=== PATIENT | male | born 1980 | race Caucasian/White ===

== ENCOUNTER 2017-03-10 10:10 | Emergency (ER) | payer BC ==
[2017-03-10] MEDS ORDERED: ASPIRIN 81 MG TAB.CHEW PO ONE (10:18)
--- NOTE | 2017-03-10 10:29 | ERNOTE ---
Chest Pain/Cardiac HPI Date of Service: 03/10/17 Time Seen by Provider: 03/10/17 10:12 Source: patient Exam Limitations: no limitations Home Medications: HOME MEDICATIONS Albuterol Sulfate [Ventolin Hfa] 2 puff IH Q4H PRN #1 inhaler 03/10/17 [Last Taken Unknown] Narrative: Pt. comes in with c/o intermittent chest pain, and SOB that started yesterday and is accompanied by dizziness and lightheadedness. Pt. is a smoker and has a family history of his uncle, dad, and paternal grandparents dying of heart attacks. Pt. states that his uncle was a sudden at 40 years of age. Pt. denies any recent illness, nausea, vomiting, decreased apatite or increased hunger or thirst. Pt. denies any numbness, tingling, or weakness. Review of Systems - Review of Systems Constitutional: Present: weakness, fatigue, malaise. Absent: recent illness, fever, chills, weight loss, decreased activity level EYE: Present: no symptoms reported. Absent: eye pain, eye discharge, double vision, vision changes ENT: Present: no symptoms reported Respiratory: Present: shortness of breath. Absent: cough, orthopnea, wheezing Cardiology: Present: chest pain. Absent: palpitations, edema Gastrointestinal/Abdominal: Present: no symptoms reported Genitourinary: Present: no symptoms reported Musculoskeletal: Present: no symptoms reported. Absent: back pain, joint pain Skin: Present: no symptoms reported. Absent: rash, change in color, change in hair/nails Neurological: Present: dizziness/light-headedness, weakness. Absent: anxiety, headache, numbness, tingling All Other Systems: All systems neg except as marked - Patient's Past Medical History Patient History - Medical: No pertinent hx Patient History - Cardiac/Respiratory: Other - smoking Patient History - Cancer: No Hx of Cancer Patient History - Surgical Procedures: No surgical history Patient History - Other: None - Family History Grandmother-Paternal Family History - Cardiac/Respiratory: Coronary Heart Disease, Myocardial Infarction Grandfather-Paternal Family History - Cardiac/Respiratory: Coronary Heart Disease, Myocardial Infarction Father Family History - Cardiac/Respiratory: Coronary Heart Disease, Myocardial Infarction Physical Exam - Physical Exam General Appearance: Present: wd/wn, alert, no apparent distress Head Exam: Present: normal inspection, no evidence of injury Eye Exam: Normal inspection: bilateral, PERRL: bilateral, EOMI: bilateral Ears, Nose, Throat: Present: normal ENT inspection, normal pharynx Neck: Present: normal inspection, nontender. Absent: lymphadenopathy (R), lymphadenopathy (L) Respiratory: Present: no respiratory distress, normal breath sounds, no accessory muscle use, chest nontender, lungs clear Cardiovascular/Chest: Present: regular rate, rhythm, no murmur, normal peripheral pulses Gastrointestinal/Abdominal: Present: normal bowel sounds, nontender, nondistended, soft, no organomegaly. Absent: McBurney sign, Obturator sign, Rangel sign, Psoas sign Back Exam: Present: normal inspection, normal range of motion, no CVA tenderness , no vertebral tenderness. Absent: muscle spasm Extremity Exam: Present: normal inspection, non-tender, normal range of motion, no edema. 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 Absent: pallor, skin rash ED Progress - Date and Time Seen: Date and Time: 03/10/17 11:13 Feel that given pt. smoking history and xray results feel that pt. has chronic bronchitis and his SOB and intermittent chest wall pain are related and have ruled out cardiac etiology at this time. Feel that opt. likely needs outpatient stress test at some point but not emergently. - Results and Orders Patient's Lab Results:: I have reviewed the patient's lab results. - Vital Signs Patient's Vital Signs:: I have reviewed the patient's vital signs. - EKG EKG: NSR EKG read: Reviewed by me EKG Comments: interp by Dr Loco - X-Ray X-Ray #1 X-Ray: chest Interpretation: Reviewed by me X-ray Comments: central bronchial thickening no acute Departure - Departure Clinical Impression: Chronic bronchitis Qualifiers: Chronic bronchitis type: unspecified Qualified Code(s): J42 - Unspecified chronic bronchitis Disposition: Home self-care Condition: Good Instructions: Chronic Obstructive Pulmonary Disease, [id number] Additional Instructions: Please follow up with Dr Palomo in 2-3 days for further testing. Referrals: Carmen Palomo MD [Primary Care Provider] - Prescriptions: Albuterol Sulfate [Ventolin Hfa] 2 puff IH Q4H PRN #1 inhaler PRN Reason: Shortness Of Breath
[2017-03-10 10:38] LABS: Hematocrit 42.6 % (42.0-52.0); Hemoglobin 14.6 gm/dL (13.5-18.0); Mean Cell Volume 89.7 fl (78-100); Mean Corpuscular Hemoglobin 30.7 pg (27-31); Mean Corpuscular Hgb Conc 34.3 g/dl (32-36); Mean Platelet Volume 9.8 fl (6.0-9.5); Neutrophil # 4.7 K/mm3 (1.3-6.0); Neutrophil % 54.2 % (42-75.0); Platelet Count 242 K/mm3 (150-450); Red Blood Count 4.75 M/mm3 (4.7-6.0); Red Cell Distribution Width 12.7 % (11.5-14.0); White Blood Count 8.8 K/mm3 (4.0-10.5)
[2017-03-10] MEDS ORDERED: ASPIRIN 81 MG TAB.CHEW ONE (10:45)
[2017-03-10 10:46] LABS: Prothrombin Time (Patient) 10.4 Seconds (9.4-11.4)
[2017-03-10 10:48] LABS: Partial Thrombolplastin Time 31.1 Seconds (24-32)
[2017-03-10 10:54] LABS: ALT 18 U/L (19-67); AST 9 U/L (0-48); Albumin * 3.9 gm/dl (3.4-5.0); Alkaline Phosphatase * 77 U/L (50-170); Anion Gap 13.7 mmol/L (6.8-13.8); BUN/Creatinine Ratio 9.5 (9.0-21.6); Bilirubin, Total 0.3 mg/dL (0.0-1.1); Blood Urea Nitrogen 9 mg/dL (6-23); Calcium * 8.2 mg/dL (7.9-10.9); Carbon Dioxide 25.8 mmol/L (24-32.6); Chloride 104 mmol/L (97-106); Glucose * 135 mg/dL (70-110); Potassium 3.5 mmol/L (3.4-4.6); Sodium 140 mmol/L (132-142); Total Protein 7.4 gm/dL (6.2-8.2)
[2017-03-10 10:57] LABS: Troponin I Less than 0.017 ng/ml (0.00-0.10)
[2017-03-10 11:29] LABS: Hemoglobin A1C 5.4 % (4.00-6.0)
[2017-03-10 12:15] VITALS: BP 108/75
== END 2017-03-10 11:51 | disposition home or self-care (01) ==
LOC: ER 10:10
DX: J42 Unspecified chronic bronchitis (principal); Z87.891 Personal history of nicotine dependence